=== PATIENT | male | born 1955 | race Caucasian/White ===

== ENCOUNTER 2016-12-23 17:22 | Inpatient (IN) | payer OTHER ==
--- NOTE | 2016-12-23 18:31 | ER Document Report ---
ED Extremity Problem, Lower - General Information source: Patient <ADELINA JONES - Last Filed: 12/23/16 22:25> <ELLE SAMANIEGO - Last Filed: 12/23/16 23:59> - General Chief Complaint: Knee Pain Stated Complaint: KNEE PAIN Time Seen by Provider: 12/23/16 17:45 Notes: Patient is a 61-year-old male who presents to the emergency department today with complaints of right knee pain. Patient had right knee surgery in [place] in July. Patient states he has not had problems with this knee since the operation. Patient states he has been walking daily without any difficulty. Patient states he has had swelling over his right knee for the last few days and now he is unable to move his knee secondary to pain with obvious swelling to the right knee. Patient denies any falls or trauma to the area. (ROBERT ADELINA) - Related Data Allergies/Adverse Reactions: No Known Allergies Allergy (Unverified 12/23/16 17:35) Home Medications: Current Home Medications Rosuvastatin Calcium [Crestor] 40 mg PO DAILY 12/23/16 [History] Past Medical History - General Information source: Patient - Social History Smoking Status: Never Smoker Cigarette use (# per day): No Chew tobacco use (# tins/day): No Frequency of alcohol use: None Drug Abuse: None Lives with: Family Family History: Reviewed & Not Pertinent - Past Medical History Cardiac Medical History: Reports: Hx Hypercholesterolemia Past Surgical History: Reports: Hx Orthopedic Surgery - Right knee replacement <ROBERTADELINA - Last Filed: 12/23/16 22:25> Review of Systems - Review of Systems Constitutional: No symptoms reported EENT: No symptoms reported Cardiovascular: No symptoms reported Respiratory: No symptoms reported Gastrointestinal: No symptoms reported Genitourinary: No symptoms reported Male Genitourinary: No symptoms reported Musculoskeletal: See HPI, Joint pain - right knee pain Skin: No symptoms reported Hematologic/Lymphatic: No symptoms reported Neurological/Psychological: No symptoms reported -: Yes All other systems reviewed and negative <ADELINA JONES - Last Filed: 12/23/16 22:25> Physical Exam <ADELINA JONES - Last Filed: 12/23/16 22:25> <ELLE SAMANIEGO - Last Filed: 12/23/16 23:59> - Vital signs Vitals: Temp Pulse Resp BP Pulse Ox 98.1 F 64 19 116/65 95 12/23/16 17:31 12/23/16 17:31 12/23/16 17:31 12/23/16 17:31 12/23/16 17:31 - Notes Notes: Physical Exam: General: Alert, uncomfortable secondary to pain. HEENT: Normocephalic. Atraumatic. PERRL. Extraocular movements intact. Oropharynx clear. Neck: Supple. Non-tender. Respiratory: No respiratory distress. Clear and equal breath sounds bilaterally. Cardiovascular: Regular rate and rhythm. Abdominal: Normal Inspection. Non-tender. No distension. Normal Bowel Sounds. Back: Non-tender. No deformity or step off. Extremities: Moves all four extremities. Upper extremities: Normal inspection. Normal ROM. Lower extremities: Obvious swelling to right knee, tenderness with palpation over right knee, skin breakdown over right patella, pain with range of motion of right knee, joint effusion. Neurological: Normal cognition. AAOx4. Normal speech. Psychological: Normal affect. Normal Mood. Skin: Warm. Dry. Normal color. (ADELINA JONES) Course - Laboratory Result Diagrams: 12/23/16 18:46 12/23/16 18:46 - Consults Ortho - Dr. Gilbert Time consulted: 18:34 <ADELINA JONES - Last Filed: 12/23/16 22:25> - Laboratory Result Diagrams: 12/23/16 18:46 12/23/16 18:46 - Diagnostic Test Radiology reviewed: Reports reviewed <ELLE SAMANIEGO - Last Filed: 12/23/16 23:59> - Re-evaluation Re-evalutation: 12/23/16 Patient presents with knee pain, swelling, warmth. Discussed with orthopedics. Will be admitted for what is likely a septic joint. Vancomycin and Zosyn have been ordered. Blood and urine culture sent. Patient agrees with this plan. Stable time of admission. (ELLE SAMANIEGO) - Vital Signs Vital signs: Temp Pulse Resp BP Pulse Ox 97.2 F 73 16 92/58 L 100 12/23/16 19:19 12/23/16 19:19 12/23/16 23:20 12/23/16 23:20 12/23/16 19:19 - Laboratory Laboratory results interpreted by me: 12/23/16 12/23/16 18:46 18:46 Lymphocytes % 10.9 L Monocytes % 15.7 H ESR 31 H Glucose 125 H Total Bilirubin 1.7 H Direct Bilirubin 0.5 H ALT 20 L C-Reactive Protein 145.4 H Discharge <ADELINA JONES - Last Filed: 12/23/16 22:25> - Discharge Admitting Provider: Gilbert Unit Admitted: Surgical Floor <ELLE SAMANIGEO - Last Filed: 12/23/16 23:59> - Discharge Clinical Impression: Infection of knee Condition: Stable Disposition: ADMITTED INPATIENT Scribe Attestation: 12/23/16 23:59 I personally performed the services described in the documentation, reviewed and edited the documentation which was dictated to the scribe in my presence, and it accurately records my words and actions. (ELLE SAMANIEGO) Scribe Documentation - Scribe Written by Rosa Maria:: Rosa Maria Astorga, 12/23/2016 2232 acting as scribe for :: Jacinto <ADELINA JONES - Last Filed: 12/23/16 22:25>
[2016-12-23] MEDS ORDERED: ONDANSETRON HCL INJ/PF 4 MG/2 ML SDV IV ONE (19:08)
[2016-12-23] MEDS ORDERED: MORPHINE SULFATE 10 MG/ML INJ IV ONE (19:08)
[2016-12-23 19:30] LABS: ABSOLUTE LYMPHOCYTES (AUTO) 0.8 10^3/uL (0.5-4.7); ABSOLUTE MONOCYTES (AUTO) 1.1 10^3/uL (0.1-1.4); BASOPHILS % (AUTO) 0.4 % (0-2); EOSINOPHILS % (AUTO) 0.2 % (0-6); HEMATOCRIT 43.7 % (37.9-51.0); HEMOGLOBIN 14.8 g/dL (13.5-17.0); HGB HCT DIFFERENCE 0.7; LYMPHOCYTES % (AUTO) 10.9 % (13-45); MEAN CORPUSCULAR HEMOGLOBIN 31.6 pg (27.0-33.4); MEAN CORPUSCULAR HGB CONC 33.8 g/dL (32.0-36.0); MEAN CORPUSCULAR VOLUME 94 fl (80-97); MONOCYTES % (AUTO) 15.7 % (3-13); RED BLOOD COUNT 4.67 10^6/uL (4.35-5.55); SEGMENTED NEUTROPHILS % (AUTO) 72.8 % (42-78); WHITE BLOOD COUNT 6.9 10^3/uL (4.0-10.5)
--- NOTE | 2016-12-23 19:30 | RADIOLOGY REPORT (SQ) ---
EXAM DESCRIPTION: KNEE RIGHT 3 VIEWS COMPLETED DATE/TIME: 12/23/2016 7:09 pm REASON FOR STUDY: pain, redness COMPARISON: None. NUMBER OF VIEWS: Three views. TECHNIQUE: AP, lateral, and sunrise patella radiographic images acquired of the right knee. LIMITATIONS: None. FINDINGS: MINERALIZATION: Normal. BONES: No acute fracture or dislocation. No worrisome bone lesions. No significant osteophytes. JOINT: There is a moderate joint effusion. OTHER: There is prepatellar soft tissue swelling. IMPRESSION: Moderate joint effusion and prepatellar soft tissue swelling. TECHNICAL DOCUMENTATION: JOB ID: [id number] [employer]- All Rights Reserved
[2016-12-23 19:33] LABS: PROTHROMBIN TIME 13.4 SEC (11.4-15.4)
[2016-12-23 19:34] LABS: PARTIAL THROMBOPLASTIN TIME 31.9 SEC (23.5-35.8)
[2016-12-23] MEDS ORDERED: VANCOMYCIN HCL INJ 1000 MG VIAL IV ONE (19:35)
[2016-12-23] MEDS ORDERED: PIPERACILLIN/TAZOBACTAM 3.375 GM VIAL IV ONE (19:36)
[2016-12-23] MEDS ORDERED: OXYCODONE-ACETAMINOPHEN 5-325 MG TABLET ONE (19:52)
[2016-12-23 19:54] LABS: ALANINE AMINOTRANSFERASE 20 U/L (21-72); ALBUMIN 3.9 g/dL (3.5-5.0); ALKALINE PHOSPHATASE 75 U/L (38-126); ANION GAP 7 (5-19); ASPARTATE AMINO TRANSFERASE 19 U/L (17-59); BILIRUBIN,DIRECT 0.5 mg/dL (0.0-0.4); BILIRUBIN,TOTAL 1.7 mg/dL (0.2-1.3); BLOOD UREA NITROGEN 19 mg/dL (7-20); CALCIUM 8.9 mg/dL (8.4-10.2); CARBON DIOXIDE 28 mmol/L (22-30); CHLORIDE 102 mmol/L (98-107); CREATININE RESULT 0.88 mg/dL (0.52-1.25); GLUCOSE 125 mg/dL (75-110); POTASSIUM 4.4 mmol/L (3.6-5.0); SODIUM 137.4 mmol/L (137-145); TOTAL PROTEIN 6.8 g/dL (6.3-8.2)
[2016-12-23 20:11] LABS: ERYTHROCYTE SEDIMENTATION RATE 31 mm/hr (0-20)
[2016-12-23 20:15] LABS: C-REACTIVE PROTEIN 145.4 mg/L (<10.0)
[2016-12-23] MEDS ORDERED: ONDANSETRON HCL INJ/PF 4 MG/2 ML SDV IV PRN (20:49)
[2016-12-23] MEDS ORDERED: PIPERACILLIN/TAZOBACTAM 3.375 GM VIAL IV SCH (21:00)
[2016-12-24] MEDS ORDERED: RINGERS SOLUTION,LACTATED 1,000 ML IV PRN
[2016-12-24] MEDS: OXYCODONE-ACETAMINOPHEN 5-325 MG TABLET PO PRN ×2 (01:46→07:57)
--- NOTE | 2016-12-24 09:13 | RADIOLOGY REPORT (SQ) ---
EXAM DESCRIPTION: MRI RT LOWER JOINT WITHOUT COMPLETED DATE/TIME: 12/23/2016 9:13 pm REASON FOR STUDY: infected right knee/history of repair COMPARISON: Right knee plain films 12/23/2016 TECHNIQUE: Rightknee images acquired and stored on PACS. Multiplanar images include fat sensitive s equences as T1, water sensitive sequences as FST2 or STIR, cartilage sensitive sequences as FSPD, and gradient echo sequences. LIMITATIONS: None. FINDINGS: JOINT AND BURSAE: There is a large suprapatellar knee joint effusion, with thickening of t he synovium over the suprapatellar recess worrisome for infection. Tiny Ochoa's cyst. There is ferromagnetic artifact over the ventral aspect of the patella, and throughout the periphery of the suprapatellar recess. BONE CORTEX AND MARROW: Subcentimeter focus of bone marrow edema along the lateral femoral condyle at the intercondylar notch, best shown on coronal image 14, axial image 14, and sagittal image 11. Thi s is nonspecific. Three K-wire tracts are present in the patella on axial images 80-15, and coronal image 6. No surrou nding patellar marrow signal abnormalities. ACL: Intact. No degeneration or ganglion cyst. PCL: Intact. MCL: Intact. No periligamentous edema or fluid. LCL: Intact. No periligamentous edema or fluid. MEDIAL MENISCUS: Horizontal tear mid body and posterior horn medial meniscus, without parameniscal cy st LATERAL MENISCUS: No tears. No abnormal signal. MEDIAL COMPARTMENT: Mild chondromalacia preserved. No bone bruises or reactive marrow edema. No osteo phytes. LATERAL COMPARTMENT: Cartilage preserved. No bone bruises or reactive marrow edema. No osteophytes. PATELLA: Moderate lateral patellar facet chondromalacia. No subchondral cysts. Medial and lateral ret inacula are thickened and indistinct on axial images 8-16. EXTENSOR MECHANISM: Ruptured quadriceps tendon, best shown on sagittal image 13 and axial image 1-6. Patellar tendon is thickened and high in signal from tendinopathy, best shown on axial images 19-25, and sagittal image 25. SOFT TISSUES: Edema in the prepatellar soft tissues. OTHER: No other significant finding. IMPRESSION: Evidence of prior surgery, with K-wire tracts in the patella, and ferromagnetic artifact over the synovium of the supra patellar recess. Significant joint effusion with diffuse synovial thickening worrisome for infection. Quadriceps tendon rupture Patellar tendinopathy Thickened medial and lateral patellar retinaculum Horizontal tear mid body and posterior horn medial meniscus TECHNICAL DOCUMENTATION: JOB ID: [id number] [employer]- All Rights Reserved
[2016-12-24] MEDS ORDERED: SUCCINYLCHOLINE CHLORIDE INJ 200 MG/10 ML VIAL ONE ×2 (10:05)
[2016-12-24] MEDS ORDERED: ONDANSETRON HCL INJ/PF 4 MG/2 ML SDV ONE (10:05)
[2016-12-24] MEDS ORDERED: OXYCODONE-ACETAMINOPHEN 5-325 MG TABLET PO PRN ×4 (11:36→16:53)
[2016-12-24] MEDS ORDERED: MORPHINE SULFATE 10 MG/ML INJ IV PRN ×2 (11:37→16:53)
--- NOTE | 2016-12-24 13:07 | EKG REPORT ---
SEVERITY:- OTHERWISE NORMAL ECG - SINUS RHYTHM BORDERLINE LEFT AXIS DEVIATION : Confirmed by: Vinicius De Luna 24-Dec-2016 13:06:39
[2016-12-24] MEDS ORDERED: BACITRACIN INJ 50,000 UNIT VIAL ONE ×2 (13:12→16:56)
[2016-12-24] MEDS ORDERED: ONDANSETRON HCL INJ/PF 4 MG/2 ML SDV IV PRN (14:50)
[2016-12-24] MEDS ORDERED: PROPOFOL INJ 200 MG/20 ML VIAL IV ONE (15:24)
[2016-12-24] MEDS ORDERED: FENTANYL CITRATE INJ/PF 100 MCG/2 ML AMPUL ONE (15:24)
[2016-12-24] MEDS ORDERED: KETAMINE HCL INJ 500 MG/10 ML VIAL ONE (15:24)
[2016-12-24] MEDS ORDERED: MIDAZOLAM 2 MG/2 ML INJ ONE ×2 (15:24)
[2016-12-24] MEDS ORDERED: PIPERACILLIN SODIUM/TAZOBACTAM 3.375 GM in NORMAL SALINE 100 ML IV ONE (16:00)
[2016-12-24] MEDS ORDERED: EPHEDRINE SULFATE INJ 50 MG/1 ML AMPULE ONE (16:29)
[2016-12-24] MEDS ORDERED: PROMETHAZINE HCL INJ 25 MG/1 ML VIAL IV PRN ×2 (16:53)
[2016-12-24] MEDS ORDERED: DIPHENHYDRAMINE HCL 50 MG/ML VIAL IV PRN (16:53)
[2016-12-24] MEDS ORDERED: MEPERIDINE HCL/PF INJ 25 MG/1 ML DISP.SYRIN IV PRN (16:53)
[2016-12-24] MEDS ORDERED: FENTANYL CITRATE INJ/PF 100 MCG/2 ML AMPUL IV PRN ×3 (16:53)
[2016-12-24] MEDS ORDERED: ACETAMINOPHEN 100 ML IV ONE (17:58)
[2016-12-24] MEDS ORDERED: IBUPROFEN INJ 800 MG/8 ML VIAL IV ONE (17:58)
--- NOTE | 2016-12-24 18:44 | PDOC H&P ---
History of Present Illness Admission Date/PCP: 12/23/16 21:17 Patient complains of: Right knee pain and swelling. History of Present Illness: MARYANNE ROWE is a 61 year old male who last couple days of developed pain with ambulation and range of motion and significant swelling of the right knee. Patient has difficulty even tolerating weight and came to the ER for evaluation. He does admit that in July he had right quadriceps tendon rupture with subsequent repair by a orthopedic surgeon down in [place]. She did develop a scab over the incision which did drain for while before scabbing over. Since then he has developed swelling and erythema. Denies any other injury to that right knee. He does stay a week ago he may potentially injured his knee but does not not recall any recent trauma. Denies any numbness or tingling or paresthesias. Currently at rest pain is 0 but with range of motion and weight pain can be a 4 out of 5. Past Medical History Cardiac Medical History: Reports: Hyperlipidema Past Surgical History Past Surgical History: Reports: Orthopedic Surgery - Right knee replacement Social History Lives with: Family Smoking Status: Never Smoker - Advance Directive Resuscitation Status: Full Code Family History Family History: Reviewed & Not Pertinent Parental Family History Reviewed: No Children Family History Reviewed: No Sibling(s) Family History Reviewed.: No Medication/Allergy Home Medications: Fluoxetine HCl [Prozac] 40 mg PO DAILY 12/24/16 Rosuvastatin Calcium [Crestor] 40 mg PO DAILY 12/24/16 Allergies/Adverse Reactions: No Known Allergies Allergy (Unverified 12/23/16 17:35) Review of Systems All systems: reviewed and no additional remarkable complaints except as stated Physical Exam Vital Signs: Temp Pulse Resp BP Pulse Ox 36.3 C 71 20 122/59 L 90 L 12/24/16 17:31 12/24/16 18:16 12/24/16 18:16 12/24/16 18:16 12/24/16 18:16 Intake & Output 12/23/16 12/24/16 12/25/16 06:59 06:59 06:59 Intake Total 967 6960 Output Total 250 6300 Balance 717 660 General appearance: PRESENT: no acute distress Head exam: PRESENT: atraumatic Eye exam: PRESENT: EOMI, PERRLA. ABSENT: conjunctival injection, nystagmus Ear exam: PRESENT: normal external ear exam Neck exam: ABSENT: tenderness, thyromegaly, tracheal deviation Respiratory exam: PRESENT: clear to auscultation darleen, symmetrical, unlabored. ABSENT: tachypnea Cardiovascular exam: PRESENT: RRR Pulses: PRESENT: normal dorsalis pedis pul Vascular exam: PRESENT: normal capillary refill GI/Abdominal exam: PRESENT: soft. ABSENT: organolmegaly, rebound, tenderness Neurological exam: PRESENT: alert, awake, oriented to person, oriented to place , oriented to time Psychiatric exam: PRESENT: appropriate affect, normal mood Skin exam: PRESENT: abrasion, erythema, warm, other - Healed incision Adult Front & Back Image: 1 - Positive fluctuance and swelling of the right knee with a healed midline incision and a small abrasion has scabbed over. Patient unable to do a straight leg raise or fully extend his knee against gravity. He has a palpable 1-2 cm defect between the superior pole of the patella and the quadriceps tendon where he had supposedly had a repair. Soft cast and he does have a normal dorsalis pedis pulse. Good sensation to light touch. 5 out of 5 motor distally. Additonal comments: 180 mL's of serosanguineous fluid with proteinaceous tissue consistent with a right knee infection. Results Impressions: Knee X-Ray 12/23/16 18:32 IMPRESSION: Moderate joint effusion and prepatellar soft tissue swelling. Lower Extremity MRI 12/23/16 19:37 IMPRESSION: Evidence of prior surgery, with K-wire tracts in the patella, and ferromagnetic artifact over the synovium of the supra patellar recess. Significant joint effusion with diffuse synovial thickening worrisome for infection. Quadriceps tendon rupture Patellar tendinopathy Thickened medial and lateral patellar retinaculum Horizontal tear mid body and posterior horn medial meniscus Status: Image reviewed by me Assessment & Plan - Diagnosis (1) Infection of knee Is this a current diagnosis for this admission?: YesPlan: 61-year-old gentleman who is 4 months out from right quadriceps tendon repair who comes into the ER with a thick right knee and a fair of chronic quadriceps tendon repair. The etiology and time of when he reruptured or the repair failed is uncertain. The aspiration of the right knee was then sent for cultures and sensitivity and Gram stain. Patient will be placed n.p.o. and I will order an MRI of the right knee to confirm diagnosis of ruptured or failed quadriceps tendon repair. Patient will be bedrest and placed in a knee immobilizer. He will be started on IV antibiotics. Plan to take him tomorrow for I&D of the right knee. Risk and benefits were discussed with the patient and the patient understands.
[2016-12-24] MEDS: ENOXAPARIN SODIUM INJ 40 MG/0.4 ML DISP.SYRIN SUBCUT SCH (21:02)
[2016-12-25] MEDS: PIPERACILLIN SODIUM/TAZOBACTAM 3.375 GM in NORMAL SALINE 100 ML IV SCH ×3 (01:35→17:37)
[2016-12-25] MEDS: OXYCODONE-ACETAMINOPHEN 5-325 MG TABLET PO PRN ×2 (01:36→08:21)
[2016-12-25 06:12] LABS: ABSOLUTE LYMPHOCYTES (AUTO) 0.6 10^3/uL (0.5-4.7); ABSOLUTE MONOCYTES (AUTO) 0.7 10^3/uL (0.1-1.4); ABSOLUTE NEUT (AUTO) 7.6 10^3/uL (1.7-8.2); BASOPHILS % (AUTO) 0.1 % (0-2); HGB HCT DIFFERENCE 1.6; LYMPHOCYTES % (AUTO) 6.9 % (13-45); MEAN CORPUSCULAR HGB CONC 34.9 g/dL (32.0-36.0); MEAN CORPUSCULAR VOLUME 92 fl (80-97); MONOCYTES % (AUTO) 8.2 % (3-13); RED BLOOD COUNT 3.83 10^6/uL (4.35-5.55); RED CELL DISTRIBUTION WIDTH 12.6 % (11.5-14.0); SEGMENTED NEUTROPHILS % (AUTO) 84.8 % (42-78); WHITE BLOOD COUNT 8.9 10^3/uL (4.0-10.5)
[2016-12-25 06:19] LABS: HEMOGLOBIN 12.2 g/dL (13.5-17.0)
[2016-12-25 06:59] LABS: ANION GAP 9 (5-19); BLOOD UREA NITROGEN 16 mg/dL (7-20); CALCIUM 8.7 mg/dL (8.4-10.2); CARBON DIOXIDE 24 mmol/L (22-30); CHLORIDE 107 mmol/L (98-107); CREATININE RESULT 0.69 mg/dL (0.52-1.25); GLUCOSE 136 mg/dL (75-110); POTASSIUM 4.5 mmol/L (3.6-5.0); SODIUM 140.2 mmol/L (137-145)
[2016-12-25] MEDS ORDERED: MAGNESIUM HYDROXIDE SUSP 30 ML UDCUP PO PRN (10:21)
[2016-12-25] MEDS ORDERED: DOCUSATE SODIUM 100 MG CAPSULE PO ONE (12:00)
--- NOTE | 2016-12-25 16:32 | PDOC PROGRESS REPORT ---
Subjective Progress Note for:: 12/25/16 Subjective:: Patient is pain well controlled. No fevers overnight no acute issues overnight. Physical Exam Vital Signs: Temp Pulse Resp BP Pulse Ox 36.6 C 63 14 114/61 99 12/25/16 15:54 12/25/16 15:54 12/25/16 15:54 12/25/16 15:54 12/25/16 15:54 Intake & Output 12/24/16 12/25/16 12/26/16 06:59 06:59 06:59 Intake Total 967 48121 Output Total 250 7440 Balance 717 3579 Weight 86.1 kg General appearance: PRESENT: no acute distress Adult Front & Back Image: 1 - Dressing is dry clean and intact. Drain is intact and has about 30 mL's of bloody drainage. He is neurovascular intact distally. And as expected unable to do leg raise. Results Laboratory Results: 12/25/16 05:01 12/25/16 06:40 12/25/16 12/25/16 12/25/16 05:01 05:01 06:40 WBC 8.9 RBC 3.83 L Hgb 12.2 L D Hct 35.0 L MCV 92 MCH 32.0 MCHC 34.9 RDW 12.6 Plt Count 164 Seg Neutrophils % 84.8 H Lymphocytes % 6.9 L Monocytes % 8.2 Eosinophils % 0.0 Basophils % 0.1 Absolute Neutrophils 7.6 Absolute Lymphocytes 0.6 Absolute Monocytes 0.7 Absolute Eosinophils 0.0 Absolute Basophils 0.0 Sodium Cancelled 140.2 Potassium Cancelled 4.5 Chloride Cancelled 107 Carbon Dioxide Cancelled 24 Anion Gap Cancelled 9 BUN Cancelled 16 Creatinine Cancelled 0.69 Est GFR ( Amer) Cancelled > 60 Est GFR (Non-Af Amer) Cancelled > 60 Glucose Cancelled 136 H Calcium Cancelled 8.7 Impressions: Knee X-Ray 12/23/16 18:32 IMPRESSION: Moderate joint effusion and prepatellar soft tissue swelling. Lower Extremity MRI 12/23/16 19:37 IMPRESSION: Evidence of prior surgery, with K-wire tracts in the patella, and ferromagnetic artifact over the synovium of the supra patellar recess. Significant joint effusion with diffuse synovial thickening worrisome for infection. Quadriceps tendon rupture Patellar tendinopathy Thickened medial and lateral patellar retinaculum Horizontal tear mid body and posterior horn medial meniscus Status: Image reviewed by me Assessment & Plan - Diagnosis (1) Infection of knee Is this a current diagnosis for this admission?: Yes - Plan Summary Plan Summary: 61-year-old gentleman with right septic knee and failed quadriceps tendon repair. He is postop day 1 after irrigation debridement of his right knee and drain placement. Anticipate removing the drain tomorrow. Gram stain showing gram-positive cocci in clusters. Continue IV Zosyn. The next 2448 hrs. once we have the culture and sensitivity anticipate discharging him n.p.o. antibiotics. Continue knee immobilizer and crutches when ambulating. Continue pain control and Lovenox for DVT prophylaxis.
--- NOTE | 2016-12-25 16:37 | Operative Report ---
Operative Report DATE OF SURGERY: 12/25/16 PREOPERATIVE DIAGNOSIS: Right septic knee and failed quadriceps tendon repair POSTOPERATIVE DIAGNOSIS: Same OPERATION: I&D of right knee SURGEON: DILSHAD ALMANZA ANESTHESIA: GA TISSUE REMOVED OR ALTERED: None COMPLICATIONS: None ESTIMATED BLOOD LOSS: 10 mL INTRAOPERATIVE FINDINGS: As above PROCEDURE: 61-year-old gentleman after receiving IV Zosyn was then taken to the OR and placed in a supine position where he was induced and intubated successfully. Thigh tourniquet was applied to the right lower extremity and the right lower extremity was prepped and draped in a normal sterile surgical fashion. Extremity was elevated but no Esmark was used, the tourniquet was then inflated at 300 mmHg same old midline incision was used to expose the patella and superior portion of the knee. Immediately after incising the skin copious fluid poured out and exposed serosanguineous purulent drainage from the knee. Suction was used to resect some of the fluid and then cultures were taken and synovial tissue were biopsied. Immediately resecting some of the scar tissue I noticed some FiberWire exposed and sticking out the quadriceps tendon rupture and failed repair. No sutures were seen in the superior pole of the patella. After doing extensive irrigation and resection of tissue debridement of synovial tissue noticed the superior margin of the cartilage on the femur was covered with angry synovial tissue about a 2-3 mm over covering the cartilage. This quadriceps stump with about a centimeter and a half proximal. Placing the leg in full extension there was still significant tension even though was pulling on the quadriceps tendon. I did not believe in the side of expection a revision repair was indicated. I believe an allograft may be required and I would like to infection to be cleared up first. After 6 L of sterile saline solution mixed with bacitracin was used in a pulsatile lavage fashion. I placed a a drain and made a stab incision on the medial aspect of the knee and was able to secure the drain in the knee. I proceeded then to close the deep layers with PDS, superior layer with PDS and 2-0 nylon for the skin. I covered the incision with Xeroform, 4 x 4, ABD pad and then overwrapped with soft roll and Kameron bandage. Tourniquet was let down after 43 minutes. Drapes were removed and the patient was placed in a knee immobilizer. Patient was successfully extubated and sent to PACU in a stable condition.
[2016-12-25] MEDS: DOCUSATE SODIUM 100 MG CAPSULE PO SCH (17:37)
[2016-12-25] MEDS: ENOXAPARIN SODIUM INJ 40 MG/0.4 ML DISP.SYRIN SUBCUT SCH (21:48)
[2016-12-25] MEDS ORDERED: DOCUSATE SODIUM 100 MG/10 ML UDC PO SCH (22:00)
[2016-12-26] MEDS: PIPERACILLIN SODIUM/TAZOBACTAM 3.375 GM in NORMAL SALINE 100 ML IV SCH ×3 (01:42→20:32)
[2016-12-26] MEDS: OXYCODONE-ACETAMINOPHEN 5-325 MG TABLET PO PRN ×3 (01:47→20:37)
[2016-12-26 06:52] LABS: ABSOLUTE LYMPHOCYTES (AUTO) 1.6 10^3/uL (0.5-4.7); ABSOLUTE MONOCYTES (AUTO) 0.8 10^3/uL (0.1-1.4); ABSOLUTE NEUT (AUTO) 5.5 10^3/uL (1.7-8.2); BASOPHILS % (AUTO) 0.4 % (0-2); EOSINOPHILS % (AUTO) 0.4 % (0-6); HEMATOCRIT 35.1 % (37.9-51.0); HEMOGLOBIN 11.8 g/dL (13.5-17.0); HGB HCT DIFFERENCE 0.3; LYMPHOCYTES % (AUTO) 20.1 % (13-45); MEAN CORPUSCULAR HEMOGLOBIN 31.5 pg (27.0-33.4); MEAN CORPUSCULAR HGB CONC 33.6 g/dL (32.0-36.0); MEAN CORPUSCULAR VOLUME 94 fl (80-97); MONOCYTES % (AUTO) 9.8 % (3-13); RED BLOOD COUNT 3.74 10^6/uL (4.35-5.55); RED CELL DISTRIBUTION WIDTH 12.9 % (11.5-14.0); SEGMENTED NEUTROPHILS % (AUTO) 69.3 % (42-78); WHITE BLOOD COUNT 7.9 10^3/uL (4.0-10.5)
[2016-12-26 07:10] LABS: BLOOD UREA NITROGEN 16 mg/dL (7-20); CALCIUM 8.5 mg/dL (8.4-10.2); CARBON DIOXIDE 28 mmol/L (22-30); CHLORIDE 103 mmol/L (98-107); CREATININE RESULT 0.91 mg/dL (0.52-1.25); GLUCOSE 98 mg/dL (75-110); POTASSIUM 4.1 mmol/L (3.6-5.0)
[2016-12-26 07:19] LABS: ANION GAP 10 (5-19)
[2016-12-26] MEDS: DOCUSATE SODIUM 100 MG CAPSULE PO SCH ×2 (09:28→20:32)
--- NOTE | 2016-12-26 13:14 | PDOC PROGRESS REPORT ---
Subjective Subjective:: Patient sitting in the chair comfortably. No issues overnight. Continues to have pain with motion. Denies fever chills or sweats. Physical Exam Vital Signs: Temp Pulse Resp BP Pulse Ox 98.8 F 57 L 20 142/77 H 100 12/26/16 12:05 12/26/16 12:05 12/26/16 12:05 12/26/16 12:05 12/26/16 12:05 Intake & Output 12/25/16 12/26/16 12/27/16 06:59 06:59 06:59 Intake Total 18358 1140 Output Total 7440 370 Balance 3579 770 Weight 86.1 kg Musculoskeletal exam: PRESENT: other - Right knee: Moderate residual swelling. Surgical incision well approximated no erythema or drainage. Drain removed today. Mild serosanguineous drainage no gross purulence expressed. No calf tenderness. No streaking erythema. Results Laboratory Results: 12/26/16 06:00 12/26/16 06:00 12/26/16 12/26/16 06:00 06:00 WBC 7.9 RBC 3.74 L Hgb 11.8 L Hct 35.1 L MCV 94 MCH 31.5 MCHC 33.6 RDW 12.9 Plt Count 199 Seg Neutrophils % 69.3 Lymphocytes % 20.1 Monocytes % 9.8 Eosinophils % 0.4 Basophils % 0.4 Absolute Neutrophils 5.5 Absolute Lymphocytes 1.6 Absolute Monocytes 0.8 Absolute Eosinophils 0.0 Absolute Basophils 0.0 Sodium 141.0 Potassium 4.1 Chloride 103 Carbon Dioxide 28 Anion Gap 10 BUN 16 Creatinine 0.91 Est GFR ( Amer) > 60 Est GFR (Non-Af Amer) > 60 Glucose 98 Calcium 8.5 Impressions: Knee X-Ray 12/23/16 18:32 IMPRESSION: Moderate joint effusion and prepatellar soft tissue swelling. Lower Extremity MRI 12/23/16 19:37 IMPRESSION: Evidence of prior surgery, with K-wire tracts in the patella, and ferromagnetic artifact over the synovium of the supra patellar recess. Significant joint effusion with diffuse synovial thickening worrisome for infection. Quadriceps tendon rupture Patellar tendinopathy Thickened medial and lateral patellar retinaculum Horizontal tear mid body and posterior horn medial meniscus Assessment & Plan - Diagnosis (1) Infection of knee Is this a current diagnosis for this admission?: YesPlan: 61-year-old gentleman with right septic knee and failed quadriceps tendon repair postop day 2 after irrigation debridement of his right knee and drain placement. Gram stain showing gram-positive cocci in clusters. Continue IV Zosyn. The next 24`48 hrs. once we have the culture and sensitivity anticipate discharging him on IV vs. PO antibiotics. Continue knee immobilizer and crutches when ambulating. Continue pain control and Lovenox for DVT prophylaxis.
[2016-12-26] MEDS: ENOXAPARIN SODIUM INJ 40 MG/0.4 ML DISP.SYRIN SUBCUT SCH (21:41)
[2016-12-26] MEDS: ZOLPIDEM TARTRATE 5 MG TABLET PO PRN (21:41)
[2016-12-27] MEDS: PIPERACILLIN SODIUM/TAZOBACTAM 3.375 GM in NORMAL SALINE 100 ML IV SCH ×3 (02:02→18:17)
[2016-12-27] MEDS: OXYCODONE-ACETAMINOPHEN 5-325 MG TABLET PO PRN (04:48)
[2016-12-27 04:51] LABS: ABSOLUTE EOSINOPHILS # (AUTO) 0.1 10^3/uL (0.0-0.6); ABSOLUTE LYMPHOCYTES (AUTO) 1.8 10^3/uL (0.5-4.7); BASOPHILS % (AUTO) 0.6 % (0-2); EOSINOPHILS % (AUTO) 1.7 % (0-6); HEMATOCRIT 36.2 % (37.9-51.0); HEMOGLOBIN 12.3 g/dL (13.5-17.0); HGB HCT DIFFERENCE 0.7; LYMPHOCYTES % (AUTO) 25.7 % (13-45); MEAN CORPUSCULAR HEMOGLOBIN 31.6 pg (27.0-33.4); MEAN CORPUSCULAR HGB CONC 33.9 g/dL (32.0-36.0); MEAN CORPUSCULAR VOLUME 93 fl (80-97); MONOCYTES % (AUTO) 14.7 % (3-13); RED BLOOD COUNT 3.88 10^6/uL (4.35-5.55); RED CELL DISTRIBUTION WIDTH 12.8 % (11.5-14.0); SEGMENTED NEUTROPHILS % (AUTO) 57.3 % (42-78); WHITE BLOOD COUNT 6.9 10^3/uL (4.0-10.5)
[2016-12-27 05:07] LABS: ANION GAP 9 (5-19); BLOOD UREA NITROGEN 14 mg/dL (7-20); CARBON DIOXIDE 28 mmol/L (22-30); CHLORIDE 102 mmol/L (98-107); CREATININE RESULT 0.91 mg/dL (0.52-1.25); GLUCOSE 99 mg/dL (75-110); POTASSIUM 4.1 mmol/L (3.6-5.0)
[2016-12-27] MEDS: MORPHINE SULFATE 10 MG/ML INJ IV PRN ×3 (09:06→18:51)
[2016-12-27] MEDS: DOCUSATE SODIUM 100 MG CAPSULE PO SCH ×2 (09:07→18:06)
--- NOTE | 2016-12-27 09:21 | PDOC PROGRESS REPORT ---
Subjective Subjective:: Patient sitting in the chair comfortably. No issues overnight. Continues to have pain with motion. Denies fever chills or sweats. Physical Exam Vital Signs: Temp Pulse Resp BP Pulse Ox 98.4 F 50 L 20 115/63 96 12/27/16 08:21 12/27/16 08:21 12/27/16 08:21 12/27/16 08:21 12/27/16 08:21 Intake & Output 12/26/16 12/27/16 12/28/16 06:59 06:59 06:59 Intake Total 1140 1900 Output Total 370 1500 Balance 770 400 Weight 85.8 kg Musculoskeletal exam: PRESENT: other - Right lower extremity dressing clean/dry/ intact no erythema or drainage. Moderate effusion. Pain with range of motion. Intact plantar flexion/dorsiflexion. Results Laboratory Results: 12/27/16 04:41 12/27/16 04:41 12/27/16 12/27/16 04:41 04:41 WBC 6.9 RBC 3.88 L Hgb 12.3 L Hct 36.2 L MCV 93 MCH 31.6 MCHC 33.9 RDW 12.8 Plt Count 197 Seg Neutrophils % 57.3 Lymphocytes % 25.7 Monocytes % 14.7 H Eosinophils % 1.7 Basophils % 0.6 Absolute Neutrophils 4.0 Absolute Lymphocytes 1.8 Absolute Monocytes 1.0 Absolute Eosinophils 0.1 Absolute Basophils 0.0 Sodium 139.0 Potassium 4.1 Chloride 102 Carbon Dioxide 28 Anion Gap 9 BUN 14 Creatinine 0.91 Est GFR ( Amer) > 60 Est GFR (Non-Af Amer) > 60 Glucose 99 Calcium 9.0 12/24/16 16:34 Knee - Right Gram Stain - Final 12/24/16 16:34 Knee - Right Wound Culture - Final Staphylococcus Aureus No Anaerobic Organisms Impressions: Knee X-Ray 12/23/16 18:32 IMPRESSION: Moderate joint effusion and prepatellar soft tissue swelling. Lower Extremity MRI 12/23/16 19:37 IMPRESSION: Evidence of prior surgery, with K-wire tracts in the patella, and ferromagnetic artifact over the synovium of the supra patellar recess. Significant joint effusion with diffuse synovial thickening worrisome for infection. Quadriceps tendon rupture Patellar tendinopathy Thickened medial and lateral patellar retinaculum Horizontal tear mid body and posterior horn medial meniscus Assessment & Plan - Diagnosis (1) Infection of knee Is this a current diagnosis for this admission?: YesPlan: 61-year-old gentleman with right septic knee and failed quadriceps tendon repair postop day 2 after irrigation debridement of his right knee and drain placement. Culture and sensitivity demonstrates MSSA We discussed treatment options given the fact patient will require secondary reconstruction he may require longer IV antibiotic use. Continue knee immobilizer and crutches when ambulating. Continue pain control and Lovenox for DVT prophylaxis.
[2016-12-27] MEDS: ZOLPIDEM TARTRATE 5 MG TABLET PO PRN (21:00)
[2016-12-27] MEDS: ENOXAPARIN SODIUM INJ 40 MG/0.4 ML DISP.SYRIN SUBCUT SCH (21:00)
[2016-12-28] MEDS: PIPERACILLIN SODIUM/TAZOBACTAM 3.375 GM in NORMAL SALINE 100 ML IV SCH ×3 (01:27→17:37)
[2016-12-28] MEDS: OXYCODONE-ACETAMINOPHEN 5-325 MG TABLET PO PRN ×4 (04:44→23:25)
[2016-12-28] MEDS: MORPHINE SULFATE 10 MG/ML INJ IV PRN ×3 (05:11→23:32)
[2016-12-28] MEDS: DOCUSATE SODIUM 100 MG CAPSULE PO SCH ×2 (09:24→17:37)
[2016-12-28] MEDS ORDERED: NORMAL SALINE 10 ML SDV (AFTER EACH USE) IV PRN (11:53)
--- NOTE | 2016-12-28 12:16 | RADIOLOGY REPORT (SQ) ---
EXAM DESCRIPTION: PICC INSERTION; U/S GUIDE FOR VASCULAR ACCESS; FLUORO/CV PLACEMENT COMPLETED DATE/TIME: 12/28/2016 11:41 am REASON FOR STUDY: IV Abx; IV ABX COMPARISON: None. FLUOROSCOPY TIME: 10 seconds 2 images saved to PACS. TECHNIQUE: Fluoroscopic and ultrasound guided PICC placement. LIMITATIONS: None. PROCEDURE: After written consent and assessment were obtained, the patient was brought into the fluo roscopy room and place supine on the table. Ultrasound was used on the patient's left arm for PICC a ccess. The left arm was prepped and draped in a sterile fashion along with the ultrasound probe. The entry site was anesthetized with 1% lidocaine. A 21 gauge 7 cm needle was advanced through the skin a nd into the basilic vein under live ultrasound guidance. An ultrasound image was saved to PACS confi rming access site. A .018 guide wire was then inserted through the needle and into the venous system . The needle was the removed and an 11 blade scalpel was used to make a 1cm skin incision. A 5 fr pe el-away sheath was advanced over the wire and into the venous system. A measurement was then made usi ng the existing wire and live fluoroscopic guidance. The wire was then removed and the trimmed. The P ICC was advanced through the peel-away sheath and into the venous system. The peel-away sheath was re moved and the catheter was adhered to the patients arm with a stat lock. The catheter was then aspira dany and flushed and a sterile bandage was placed over the access site. A fluoroscopic spot image was saved to PACS confirming the catheter tip within the SVC. IMPRESSION: SUCCESSFUL PLACEMENT OF A 5 FR DUAL LUMEN 32 CM PICC IN THE LEFT BASILIC VEIN. COMMENT: Patient medication list reviewed: Yes- Quality ID# 130:Eligible professional attests to doc umenting in the medical record they obtained, updated, or reviewed the patient's current medications. . Quality ID 145: Final reports for procedures using fluoroscopy that document radiation exposure mauricio sandro, or exposure time and number of fluorographic images (if radiation exposure indices are not avail able) Quality ID #76: The patient was prepped and draped using maximum sterile barrier technique including cap, mask, sterile gown, sterile gloves, a large sterile sheet, hand hygiene, and 2% Chlorhexidine fo r cutaneous antisepsis. When ultrasound is used, sterile ultrasound techniques are followed requiring sterile gel and sterile probes. TECHNICAL DOCUMENTATION: JOB ID: [id number] [employer]- All Rights Reserved
[2016-12-28] MEDS: NORMAL SALINE 10 ML SDV (SCHEDULED) IV SCH (21:22)
[2016-12-28] MEDS: ENOXAPARIN SODIUM INJ 40 MG/0.4 ML DISP.SYRIN SUBCUT SCH (21:22)
[2016-12-28] MEDS: ZOLPIDEM TARTRATE 5 MG TABLET PO PRN (21:23)
[2016-12-29] MEDS: PIPERACILLIN SODIUM/TAZOBACTAM 3.375 GM in NORMAL SALINE 100 ML IV SCH ×2 (02:10→10:17)
[2016-12-29] MEDS: MORPHINE SULFATE 10 MG/ML INJ IV PRN (02:27)
[2016-12-29] MEDS: OXYCODONE-ACETAMINOPHEN 5-325 MG TABLET PO PRN ×2 (03:20→14:40)
[2016-12-29] MEDS: DOCUSATE SODIUM 100 MG CAPSULE PO SCH (10:20)
[2016-12-29] MEDS: NORMAL SALINE 10 ML SDV (SCHEDULED) IV SCH (10:20)
[2016-12-29] MEDS ORDERED: CEFTRIAXONE 1 GM/D5W RTU 1 GM/50 ML RTUPB IV SCH (12:00)
[2016-12-29 15:12] VITALS: BP 106/71
== END 2016-12-29 15:15 | disposition home health service (06) | DRG 487 ==
LOC: ER 17:22 → EH 21:17 → 4S 12-24 00:16
PROVIDERS: ADMIT Orthopaedic Surgery; ATTEND Orthopaedic Surgery
PROC: 0SBC0ZZ Excision of Right Knee Joint, Open Approach (ICD-10-PCS; principal; 2016-12-25)
PROC: 0S9C00Z Drainage of Right Knee Joint with Drainage Device, Open Approach (ICD-10-PCS; 2016-12-25)
PROC: 02HV33Z Insertion of Infusion Device into Superior Vena Cava, Percutaneous Approach (ICD-10-PCS; 2016-12-28)
PROC: B548ZZA Ultrasonography of Superior Vena Cava, Guidance (ICD-10-PCS; 2016-12-28)
PROC: B5181ZA Fluoroscopy of Superior Vena Cava using Low Osmolar Contrast, Guidance (ICD-10-PCS; 2016-12-28)
DX: M00.861 Arthritis due to other bacteria, right knee (principal); E78.5 Hyperlipidemia, unspecified; Z79.899 Other long term (current) drug therapy; Z96.651 Presence of right artificial knee joint
CPT/HCPCS: 01400; 36415; 36569; 76937; 77001; 80048; 80053; 83605; 85025; 85610; 85652; 85730; 86140; 86850; 86900; 86901; 87040; 87070; 87075; 87077; 87186; 87205; 88304; 93005; 93010; 96374; 96375; 99285; J0131; J0330; J0696; J1642; J1650; J1741; J2250; J2270; J2405; J2543; J2704; J3010; J3370; J3490; J7120; L1830

== ENCOUNTER → 2017-05-05 | Outpatient (CLI) | payer OTHER ==
[2017-05-05 10:35] LABS: ALANINE AMINOTRANSFERASE 31 U/L (21-72); ASPARTATE AMINO TRANSFERASE 21 U/L (17-59)
== END ==
LOC: LAB 09:58
PROVIDERS: ATTEND Podiatrist Foot Surgery
DX: B35.1 Tinea unguium (principal)
CPT/HCPCS: 36415; 84450; 84460